=== PATIENT | female | born 1945 | race American Indian/Alaskan Native ===

== ENCOUNTER 2021-01-09 14:18 | Outpatient (CLI) | payer MEDICARE ==
--- NOTE | 2021-01-09 17:05 | XRay Report ---
SKELETAL SURVEY INDICATION: INITIAL STAGING. COMPARISON: None available. FINDINGS: Skull: No lytic or blastic lesion. C-spine: No lytic or blastic lesion. Lower cervical spondylosis is noted. Humeri: No lytic or blastic lesion. Chest: No lytic or blastic lesion. No acute pulmonary or pleural findings. T-spine: No lytic or blastic lesion. L-spine: No lytic or blastic lesion. Lower lumbar facet arthropathy is noted. There is mild discogeni c degenerative change at the thoracolumbar junction. Pelvis: No lytic or blastic lesion. Advanced degenerative changes are seen at the hips with prominent acetabular osteophytes that result in over coverage and possibly pincer-type impingement. [place] cification the left hemipelvis could be degenerated fibroid. Femora: No lytic or blastic lesion. Additional Findings: None. IMPRESSION: 1. No lytic/lucent lesions are identified. Signer Name: Loco Blue MD Signed: 01/09/2021 5:01 PM Workstation Name: [id number]
== END 2021-01-09 14:19 | disposition home or self-care (01) ==
LOC: SPVIMAG 14:18
PROVIDERS: ATTEND Internal Medicine Hematology & Oncology
DX: Z12.89 Encounter for screening for malignant neoplasm of other sites (principal); M47.812 Spondylosis without myelopathy or radiculopathy, cervical region; M47.816 Spondylosis without myelopathy or radiculopathy, lumbar region; M51.34 Other intervertebral disc degeneration, thoracic region; M16.0 Bilateral primary osteoarthritis of hip; D64.9 Anemia, unspecified; D47.2 Monoclonal gammopathy
CPT/HCPCS: 77074

== ENCOUNTER 2021-05-23 04:42 | Emergency (ER) | payer MEDICARE ==
[2021-05-23] MEDS ORDERED: SODIUM CHLORIDE 0.9% 1000 ML 1,000 ML IV ONE (04:50)
--- NOTE | 2021-05-23 05:05 | Emergency Department Report ---
ED Altered Mental Status HPI - General Chief Complaint: Altered Mental Status Stated Complaint: UNRESPONDSIVE Time Seen by Provider: 05/23/21 04:48 Source: EMS Mode of arrival: Stretcher Limitations: Altered Mental Status - History of Present Illness Initial Comments: Patient is 75 years old female with history of bone cancer on chemotherapy. Patient also had history of diabetes and hypertension. Patient brought to the emergency room via EMS from home for evaluation of altered mental status, confusion and decreased responsiveness. I spoke to the patient sister Cora with a phone number of [phone]. She told me that she came today to her house to pick her up and take her to [facility]. She told me that she is scheduled for a bone marrow transplant today. She told me that her doctor is Dr. Espinoza. She also reported that she noticed that for the last 2 days she is unable to speak clearly and having difficulty getting words out she is more confused. Upon arrival to the ER patient is alert however she is not communicating. Patient found to be febrile with a temperature of 99.9. Oxygen saturation is 97% on room air. MD Complaint: altered mental status, confusion, decreased responsiveness -: Last night - Related Data Allergies Allergy/AdvReac Type Severity Reaction Status Date / Time Unable to Assess Allergy Verified 05/23/21 05:07 ED Review of Systems ROS: Stated complaint: UNRESPONDSIVE Other details as noted in HPI Comment: Unobtainable due to pts medical conditions ED Physical Exam - General Limitations: Altered Mental Status General appearance: alert - Head Head exam: Present: atraumatic, normocephalic, normal inspection - Eye Eye exam: Present: normal appearance - ENT ENT exam: Present: mucous membranes dry - Neck Neck exam: Present: normal inspection, full ROM. Absent: tenderness, meningis mus - Respiratory Respiratory exam: Present: normal lung sounds bilaterally - Cardiovascular Cardiovascular Exam: Present: regular rate, normal rhythm, normal heart sounds - GI/Abdominal GI/Abdominal exam: Present: soft, normal bowel sounds. Absent: distended, tenderness, guarding, rebound, rigid, organomegaly, mass, bruit, pulsatile mass, hernia - Extremities Exam Extremities exam: Present: normal inspection - Back Exam Back exam: Present: normal inspection - Neurological Exam Neurological exam: Present: altered - Psychiatric Psychiatric exam: Present: flat affect - Skin Skin exam: Present: warm, dry - Assessment Assessment Interval: Baseline - Level of Consciousness 1a. Level of Consciousness: arousable/minor stimuli - LOC Questions 1b. LOC Questions: answers no questions correctly - LOC Command 1c. LOC Commands: performs no tasks correctly - Best Gaze 2. Best Gaze: normal - Visual 3. Visual: no visual loss - Facial Palsy 4. Facial Palsy: minor paralysis - Motor Arm 5a. Motor Arm Left: drift 5b. Motor Arm Right: drift - Motor Leg 6a. Motor Leg Left: drift 6b. Motor Leg Right: drift - Limb Ataxia 7. Limb Ataxia: absent - Sensory 8. Sensory: coma/unresponsive - Best Language 9. Best Language: severe aphasia - Dysarthria 10. Dysarthria: mute/anarrthric - Extinction and Inattention 11. Extinction/Inattention: no abnormality - Scoring Total Score: 16 Stroke Severity: Moderate to Severe Stroke ED Course Vital Signs 05/23/21 05/23/21 05/23/21 05:09 05:10 05:11 Temperature 99.8 F H Pulse Rate 104 H Respiratory 26 H 26 H Rate Blood Pressure 158/70 [Left] O2 Sat by Pulse 100 100 Oximetry - Lab Data Result diagrams: 05/23/21 04:59 05/23/21 04:55 Lab Results 05/23/21 05/23/21 05/23/21 Range/Units 04:55 04:55 04:59 WBC 13.0 H (4.5-11.0) K/mm3 RBC 3.27 L (3.65-5.03) M/mm3 Hgb 9.6 L (10.1-14.3) gm/dl Hct 28.9 L (30.3-42.9) % MCV 89 (79-97) fl MCH 29 (28-32) pg MCHC 33 (30-34) % RDW 18.7 H (13.2-15.2) % Plt Count 217 (140-440) K/mm3 Seg Neutrophils % 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 INR 1.09 (0.87-1.13) APTT < 20.0 L (24.2-36.6) Sec. Estimated GFR 45 ml/min BUN/Creatinine Ratio 13 % Albumin/Globulin Ratio 1.5 % - EKG Data -: EKG Interpreted by Mi EKG shows normal: sinus rhythm Rate: tachycardia Interpretation: no acute changes - Radiology Data Radiology results: report reviewed - Medical Decision Making Patient is 75 years old female with history of bone cancer on chemotherapy. Patient also had history of diabetes and hypertension. Patient brought to the emergency room via EMS from home for evaluation of altered mental status, confusion and decreased responsiveness. I spoke to the patient sister Cora with a phone number of [phone]. She told me that she came today to her house to pick her up and take her to [facility]. She told me that she is scheduled for a bone marrow transplant today. She told me that her doctor is Dr. Espinoza. She also reported that she noticed that for the last 2 days she is unable to speak clearly and having difficulty getting words out she is more confused. Upon arrival to the ER patient is alert however she is not communicating. Patient found to be febrile with a temperature of 99.9. Oxygen saturation is 97% on room air. CT brain showed a subacute infarction. I discussed the patient with Dr. Prakash, on-call for Dr. Espinoza. He stated that patient scheduled today for transplant and he want the patient to be transferred to [facility]. Dr. Prakash accepted the patient to be transfer for further management. Critical Care Time: Yes Critical care time in (mins) excluding proc time.: 45 Critical care attestation.: If time is entered above; I have spent that time in minutes in the direct care of this critically ill patient, excluding procedure time. ED Disposition Clinical Impression: Acute CVA (cerebrovascular accident), Altered mental status Disposition: 04 INTERMEDIATE CARE FACILITY Is pt being admited?: No Condition: Stable
--- NOTE | 2021-05-23 05:18 | XRay Report ---
XR chest 1V ap INDICATION / CLINICAL INFORMATION: Altered Mental Status. COMPARISON: None available. FINDINGS: SUPPORT DEVICES: Right IJ central venous catheter projects over the cavoatrial junction. HEART /PULMONARY VASCULATURE: No significant abnormality. LUNGS / PLEURA: Mildly low lung volumes. No focal airspace consolidation. No pleural effusion. No pne umothorax. ADDITIONAL FINDINGS: No significant additional findings. IMPRESSION: 1. No acute findings. Signer Name: Tony Butler MD Signed: 05/23/2021 5:13 AM Workstation Name: [id number]
--- NOTE | 2021-05-23 05:50 | Cat Scan Report ---
CT HEAD WITHOUT CONTRAST INDICATION / CLINICAL INFORMATION: Altered Mental Status. TECHNIQUE: All CT scans at this location are performed using CT dose reduction for ALARA by means of automated exposure control. COMPARISON: None available. FINDINGS: BRAIN PARENCHYMA: Focal area of hypoattenuation within the left frontal lobe. There is tiny focus of hyperattenuation along the posterolateral margin, for which acute hemorrhage cannot be excluded. No s ignificant mass effect or midline shift. Findings are superimposed upon mild chronic small vessel isc hemic disease. VENTRICULAR SYSTEM/EXTRA-AXIAL SPACES: Ventricles are normal for age. No extra-axial fluid collection . ORBITS: Normal as visualized. SKELETAL SYSTEM/SOFT TISSUES: Normal bones and soft tissues. PARANASAL SINUSES/MASTOID AIR CELLS: No significant abnormality. ADDITIONAL FINDINGS: None. IMPRESSION: 1. Focal area of hypoattenuation within the left frontal lobe is suspicious for recent infarct. This appears to be at least subacute in age. Tiny focus of hyperattenuation along the margin may reflect a cute hemorrhage. Recommend correlation with MRI. Information regarding the findings were communicated to Dr. YURIDIA RECINOS MD by Dr. Tony remy MD, via telephone on 05/23/2021 4:43 AM. Signer Name: Tony Butler MD Signed: 05/23/2021 5:45 AM Workstation Name: [id number]
[2021-05-23 05:51] LABS: Hematocrit 28.9 % (30.3-42.9); Hemoglobin 9.6 gm/dl (10.1-14.3); Mean Corpuscular HGB Conc 33 % (30-34); Mean Corpuscular Volume 89 fl (79-97); Platelet Count 217 K/mm3 (140-440); Red Blood Count 3.27 M/mm3 (3.65-5.03); Red Cell Distribution Width 18.7 % (13.2-15.2)
[2021-05-23 05:53] LABS: INR 1.09 (0.87-1.13)
[2021-05-23 05:57] LABS: Alanine Aminotransferase 14 units/L (7-56); BUN/Creatinine Ratio 13; Blood Urea Nitrogen 18 mg/dL (7-17); Calcium 9.9 mg/dL (8.4-10.2); Hemolysis Index 41
[2021-05-23 06:03] LABS: Partial Thromboplastin Time < 20.0 Sec. (24.2-36.6)
[2021-05-23 06:22] LABS: Bilirubin,Direct < 0.2 mg/dL (0-0.2)
[2021-05-23] MEDS ORDERED: LORazepam 2 MG/ML VIAL ONE (06:57)
[2021-05-23] MEDS ORDERED: LORazepam 2 MG/ML VIAL IV ONE (07:14)
[2021-05-23] MEDS ORDERED: SODIUM CHLORIDE 0.9% 1000 ML IV SOLN IV ONE (07:20)
[2021-05-23] MEDS ORDERED: CEFEPIME/NS 1 GM/100 ML 1 GM/100 ML BAG IV ONE (07:22)
[2021-05-23] MEDS ORDERED: VANCOMYCIN/NS 1 GM/250 ML 1 GM/250 ML BAG IV ONE (07:22)
--- NOTE | 2021-05-23 07:24 | Event Note ---
Patient is awaiting transport to [facility] for bone marrow transplant. I was informed by nurse that patient's lactic acid is 12. Patient does have anion gap acidosis. Because of acidosis unclear. Patient examined at the bedside and is altered and responds to verbal stimuli.Abdomen soft to palpation. 30 mL/KG per normal saline bolus initiated as per sepsis protocol. blood cultures pending Empiric antibiotics with cefepime and vancomycin (chest x-ray normal, UA collection still pending) Stat CT angio abdomen pelvis to rule out ischemia ct raji abd/pelvis reviewed and no acute findings I instructed nurses to make sure ordered meds are provided/in progress prior to transfer CTA ABDOMEN AND PELVIS WITH IV CONTRAST INDICATION / CLINICAL INFORMATION: elevated lactic acid, ams OMNI 350 100 ML. TECHNIQUE: Axial CT images were obtained through the abdomen and pelvis after injection of 100 cc Omnipaque 350 IV contrast. 3 plane MIP / 3D reconstructions were produced. All CT scans at this location are performed using CT dose reduction for ALARA by means of automated exposure control. COMPARISON: No relevant comparison FINDINGS: Aorta: No significant abnormality. Renal arteries: No significant abnormality. Celiac artery: No significant abnormality. Superior Mesenteric Artery: No significant abnormality. Inferior mesenteric artery: No significant abnormality. Right Iliac Arteries: No significant abnormality.. Left Iliac Arteries: No significant abnormality.. Additional Findings: The liver, biliary system, pancreas, spleen, kidneys, adrenal glands and bowel loops are unremarkable. Mild uterine fibroid disease is noted. The bladder is markedly distended but no evidence for wall abnormality or mass. 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 Minimal lumbar spondylosis. No acute osseous findings. IMPRESSION: Unremarkable CTA of the abdomen and pelvis. No evidence for stenosis, aneurysm or dissection. No large vessel occlusion. Mild uterine fibroid disease. Distended bladder. I am told by nurse that pt was able to squeeze hands and follow commands prior to transfer. She did not speak however
--- NOTE | 2021-05-23 08:17 | Cat Scan Report ---
CTA ABDOMEN AND PELVIS WITH IV CONTRAST INDICATION / CLINICAL INFORMATION: elevated lactic acid, ams OMNI 350 100 ML. TECHNIQUE: Axial CT images were obtained through the abdomen and pelvis after injection of 100 cc Omnipaque 350 IV contrast. 3 plane MIP / 3D reconstructions were produced. All CT scans at this location are perfor med using CT dose reduction for ALARA by means of automated exposure control. COMPARISON: No relevant comparison FINDINGS: Aorta: No significant abnormality. Renal arteries: No significant abnormality. Celiac artery: No significant abnormality. Superior Mesenteric Artery: No significant abnormality. Inferior mesenteric artery: No significant abnormality. Right Iliac Arteries: No significant abnormality.. Left Iliac Arteries: No significant abnormality.. Additional Findings: The liver, biliary system, pancreas, spleen, kidneys, adrenal glands and bowel l oops are unremarkable. Mild uterine fibroid disease is noted. The bladder is markedly distended but n o evidence for wall abnormality or mass. 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 Minimal lumbar spondylosis. No acute osseous findings. IMPRESSION: Unremarkable CTA of the abdomen and pelvis. No evidence for stenosis, aneurysm or dissection. No larg e vessel occlusion. Mild uterine fibroid disease. Distended bladder. Signer Name: Raphael Mclaughlin Jr, MD Signed: 05/23/2021 8:12 AM Workstation Name: [id number]
[2021-05-23 09:34] VITALS: BP 172/70
--- NOTE | 2021-05-23 10:08 | Electrocardiograph Report ---
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
[2021-05-23 10:29] LABS: Total Cells Counted 100
[2021-05-23 10:30] LABS: Band Neutrophils # (Manual) 0.5 K/mm3; Myelocytes # (Manual) 0.3 K/mm3; Platelet Estimate Consistent w Auto; RBC Morphology Normal
== END 2021-05-23 09:00 ==
LOC: ED 04:42
DX: I63.9 Cerebral infarction, unspecified (principal); R45.81 Low self-esteem
CPT/HCPCS: 36415; 70450; 71045; 74174; 80048; 80076; 82140; 83880; 84484; 85007; 85025; 85610; 85730; 87040; 93005; 96361; 96365; 96368; 96375; 99291; J0692; J2060; J3370; J7030; Q9967; 99285